=== PATIENT | female | born 1960 | race Caucasian/White ===

== ENCOUNTER 2024-06-27 08:26 | Day surgery (SDC) | payer BC ==
[~2024-06-27] VITALS: Ht 165.1 cm; Wt 70.2 kg
[~2024-06-27 08:26] MED LIST: LISI10TA24 PO; SYNT75TA PO; TRAZ-257 PO
[2024-06-27] MEDS ORDERED: LIDOCAINE 2% 100MG/5ML SDV (FOR ANES.) As Ordered ONE (08:30)
[2024-06-27] MEDS ORDERED: propofoL 200 MG/20 ML VIAL As Ordered ONE (08:30)
[2024-06-27] MEDS ORDERED: GLYCOPYRROLATE INJ 0.2 MG/ML 2 ML VIAL As Ordered ONE (09:06)
[2024-06-27 09:16] VITALS: TEMP 96.7
[2024-06-27 09:38] VITALS: BP 105/66; O2SAT 98
== END 2024-06-27 09:50 | disposition home or self-care (01) ==
LOC: M OPP 08:26
PROVIDERS: ATTEND Internal Medicine Gastroenterology
DX: Z12.11 Encounter for screening for malignant neoplasm of colon (principal); Z12.12 Encounter for screening for malignant neoplasm of rectum; K64.0 First degree hemorrhoids; K57.30 Diverticulosis of large intestine without perforation or abscess without bleeding; I10 Essential (primary) hypertension; E78.00 Pure hypercholesterolemia, unspecified; E04.9 Nontoxic goiter, unspecified; Z79.890 Hormone replacement therapy; Z79.899 Other long term (current) drug therapy
CPT/HCPCS: 45378; J1596